=== PATIENT | female | born 1970 | race Caucasian/White ===

== ENCOUNTER → 2024-01-03 06:20 | Day surgery (SDC) | payer OTHER, SELFPAY | LOC: GI 06:20 | PROVIDERS: ATTENDING PHYSICIAN Internal Medicine | DX: Z12.11 Encounter for screening for malignant neoplasm of colon (principal); R19.5 Other fecal abnormalities; D12.4 Benign neoplasm of descending colon; D12.5 Benign neoplasm of sigmoid colon | CPT/HCPCS: 45385; 88305 ==